=== PATIENT | female | born 1970 | race Caucasian/White ===

== ENCOUNTER 2022-09-23 15:07 | Outpatient (CLI) | payer BC | END 2022-09-23 15:08 | disposition home or self-care (01) | LOC: CSHCT 15:07 | PROVIDERS: ATTEND Internal Medicine Hematology & Oncology | DX: C50.911 Malignant neoplasm of unspecified site of right female breast (principal); R91.8 Other nonspecific abnormal finding of lung field | CPT/HCPCS: 71260 ==